=== PATIENT | male | born 1990 | race Caucasian/White ===

== ENCOUNTER 2025-03-10 17:51 | Emergency (ER) | payer OTHER, SELFPAY ==
[2025-03-10] VITALS (13 sets, daily range): BP systolic 104–135; BP diastolic 62–78; PULSE 55–85; RESP 16; TEMP 37.2; O2SAT 95–99; BMI 29.9
[2025-03-10 18:13] LABS: Add Manual Diff / Slide Review NO; Hematocrit 43.3 % (41-53); Hemoglobin 15.0 g/dL (13.5-17.5); Lymphocytes Absolute Auto 2700 /uL (1100-4500); Mean Corpuscular HGB Conc 34.6 % (30-36); Mean Corpuscular Hemoglobin 28.1 PG (26-34); Mean Corpuscular Volume 81.1 fL (80-100); Platelet Count 358 X10^3/uL (150-400)
[2025-03-10 18:22] LABS: Alanine Aminotransferase 32 IU/L (<50); Albumin 5.0 g/dL (3.5-5.0); Albumin Globulin Ratio 1.5 (1.0-2.8); Alkaline Phosphatase 62 U/L (38-126); Blood Urea Nitrogen 13 mg/dL (9-20); Calcium 9.6 mg/dL (8.4-10.2); Carbon Dioxide 23 mmol/L (22-32); Chloride 107 mmol/L (98-107); Estimated Glomerular Filt Rate > 60 mL/min (>60); Globulin 3.4 g/dL (1.7-4.1); Glucose 118 mg/dL (70-99); HEMOLYSIS < 15 (0-50); Lipase 150 U/L (23-300); Potassium 3.2 mmol/L (3.4-5.1); Sodium 145 mmol/L (137-145); Total Protein 8.4 g/dL (6.3-8.2)
--- NOTE | 2025-03-10 18:51 | DI.CT.S_ITS ---
PROCEDURE: CT ABDOMEN PELVIS WO CON INDICATIONS: r/o stone TECHNIQUE: Axial sections were acquired from the lung bases to the pubic symphysis. Coronal and sagittal reformats were performed. For radiation dose reduction, the following was used: automated exposure control, adjustment of mA and/or kV according to patient size. COMPARISON: None. FINDINGS: Image quality: Diagnostic. Lower Chest: Mild bibasilar dependent atelectasis posteriorly. Heart size is normal, no pericardial effusion. URINARY: Right Kidney: 4 mm nonobstructing stone is seen in midpole right kidney. No hydronephrosis. Right Ureter: No hydroureter. Left Kidney: Mild left-sided hydronephrosis is seen with mild left perinephric fat stranding. Simple appearing left renal cortical cyst is seen. Left Ureter: [id number] left-sided hydroureter and periureteral fat stranding with 3-4 mm stone seen in distal left ureter just proximal to left UVJ series 2, image 138. Bladder: Mild diffuse bladder wall thickening, no discrete bladder wall mass or calcified bladder stones. ABDOMEN: Liver: No contour-deforming solid mass. Hepatomegaly. Gallbladder: No radiopaque gallstones or wall thickening. Biliary ducts: No biliary dilation. Pancreas: No ductal dilation. Spleen: Size is within normal limits. Adrenal Glands: No adrenal nodules. Stomach and Bowel: Normal colonic caliber, without significant wall thickening. There is likely prior appendectomy. No abscess collection. Peritoneum: No abnormal intraperitoneal fluid. No free air. Ventral Wall: No hernia. Abdominal Nodes: No enlarged retroperitoneal or mesenteric lymph nodes. Vessels: Aorta and inferior vena cava are normal in size. PELVIS: Pelvic Organs: Unremarkable. Pelvic Nodes: Unremarkable. Miscellaneous: No inguinal hernias are seen. Bones: No aggressive appearing bony lesions. No acute vertebral body compression fracture. IMPRESSION: 1. 3-4 mm left distal ureteral stone with [id number] left-sided hydronephrosis and hydroureter with left perinephric and periureteral fat stranding. 2. Right-sided nonobstructing renal stones. No right-sided hydronephrosis or hydroureter. 3. Diffuse bladder wall thickening concerning for low-grade cystitis. No discrete bladder wall mass or calcified bladder stones. 4. Other chronic findings as described above. Dictated by: Maxime Crowley M.D. on 03/10/2025 at 19:44 Approved by: Maxime Crowley M.D. on 03/10/2025 at 19:47
[2025-03-10] MEDS: SODIUM CHLORIDE 0.9% 1,000 ML 1000 ML IV (19:44)
[2025-03-10 20:00] LABS: Appearance Urine UA CLOUDY; Bilirubin Urine UA NEGATIVE (NEGATIVE); Glucose Urine UA NEGATIVE (Negative); Ketones Urine UA 1+ (NEGATIVE); Leukocyte Esterase Urine UA NEGATIVE (NEGATIVE); Nitrite Urine UA NEGATIVE (Negative); Occult Blood Urine UA 3+ (Negative); Protein Urine UA 2+ (Negative); Specific Gravity Urine UA 1.025 (1.000-1.035); Urobilinogen Urine UA 0.2 E.U./dL (0.2); pH Urine UA 6.0 (4.5-8.0)
[2025-03-10 20:01] LABS: Color Urine UA Dark Yellow; Culture Indicated Urine Cult Not Indicated
--- NOTE | 2025-03-10 20:22 | ED_ITS ---
HPI - Abdominal Pain General Chief Complaint: Abdominal Pain Stated Complaint: Abd pain x2.5 hours Time Seen by Provider: 03/10/25 17:53 Source: patient and EMS Mode of arrival: EMS History of Present Illness HPI narrative: Patient is a 35-year-old man who presents with left flank pain radiating to left groin. Past medical history significant for remote episode of kidney stones, ADHD. He has some nausea. Denies any fevers, chills, vomiting. No hematuria, dysuria, frequency, urgency. Related Data Previous Rx's ?Medication ?Instructions ?Recorded dextroamphetamine-amphetamine ER 10 mg PO DAILY #30 ca ps 02/12/25 10 mg 24hr capsule,extend release (Adderall XR) dextroamphetamine-amphetamine ER 10 mg PO DAILY #30 ca ps 02/13/25 10 mg 24hr capsule,extend release (Adderall XR) dextroamphetamine-amphetamine ER 10 mg PO DAILY #30 ca ps 02/13/25 10 mg 24hr capsule,extend release (Adderall XR) naproxen 500 mg tablet 500 mg PO BID PRN pain #14 t abs 03/10/25 tamsulosin 0.4 mg capsule (Flomax) 0.4 mg PO DAILY #10 caps 03/10/25 Allergies Allergy/AdvReac Type Severity Reaction Status Date / Time No Known Drug Allergies Allergy Verified 03/10/25 18:05 Review of Systems Review of Systems ROS Unobtainable: All systems reviewed & are unremarkable except as noted in HPI and below Patient History Medical History (Updated 03/10/25 @ 20:08 by Cassie Hudson MD) ADHD Injury of right index finger Social History Smoking Status: Former smoker Smoking Status: Former smoker tobacco type: cigarettes Exam Narrative Exam Narrative: Vitals: Afebrile, bradycardic, all other vital signs normal Gen: Well developed, well nourished, no acute distressed Card: Regular, no murmurs, rubs, or gallops Pulm: No increased work of breathing, clear to auscultation bilateraly Abd: Soft nondistended, nontender to palpation in all quadrants. No costophrenic angle tenderness bilaterally. Ext: No edema in bilaterally lower extremity Neuro: A&O x 4, CN grossly intact, moving all 4 extremities spontaneous Psych: Appropriate Initial Vital Signs Initial Vital Signs: Vital Signs Pulse Rate 60 03/10/25 17:56 Respiratory Rate 16 03/10/25 17:56 Pulse Oximetry 97 03/10/25 17:56 Oxygen Delivery Method Room Air 03/10/25 17:56 Course Orders Ordered: Discontinued Medications Sodium Chloride (Normal Saline 0.9%) 1,000 mls @ 1,000 mls/hr IV BOLUS ONE Stop: 03/10/25 20:40 Last Infusion: 03/10/25 20:24 Dose: Infused Documented By: Admin: 03/10/25 19:44 Dose: 1,000 mls/hr Documented By: RACHEL Ketorolac Tromethamine (Ketorolac 30 Mg/Ml Vial) 15 mg IV PRN PRN PRN Reason: Pain, Moderate (4-6) Last Admin: 03/10/25 20:23 Dose: 15 mg Documented By: RACHEL Ondansetron HCl (Ondansetron 4 Mg/2 Ml Inj) 4 mg IV NOW PRN PRN Reason: Nausea And Vomiting Ondansetron HCl (Ondansetron 4 Mg Odt) 4 mg PO NOW PRN PRN Reason: Nausea And Vomiting Tamsulosin HCl (Tamsulosin 0.4 Mg Capsule) 0.4 mg PO NOW ONE Stop: 03/10/25 20:04 Last Admin: 03/10/25 20:23 Dose: 0.4 mg Documented By: RACHEL Vital Signs Vital signs: Vital Signs - 8 hr 03/10/25 17:56 03/10/25 17:57 03/10/25 17:57 Temperature Pulse Rate 60 59 L Respiratory Rate 16 Blood Pressure 132/77 Pulse Oximetry 97 97 Oxygen Delivery Method Room Air 03/10/25 18:00 03/10/25 18:00 03/10/25 18:05 Temperature 98.9 F Pulse Rate 64 57 L Respiratory Rate 16 Blood Pressure 125/78 132/77 Pulse Oximetry 96 97 Oxygen Delivery Method Room Air 03/10/25 18:30 03/10/25 18:30 03/10/25 19:00 Temperature Pulse Rate 55 L Respiratory Rate Blood Pressure 104/66 108/62 Pulse Oximetry 95 Oxygen Delivery Method 03/10/25 19:00 Temperature Pulse Rate 65 Respiratory Rate Blood Pressure Pulse Oximetry 97 Oxygen Delivery Method MDM - Abdominal Pain Lab Data 03/10/25 17:54 03/10/25 17:54 Labs: Lab Results 03/10/25 03/10/25 Range/Units 17:54 19:40 WBC 12.9 H (4.5-11.0) X10^3/uL RBC 5.34 (4.5-5.9) X10^6/uL Hgb 15.0 (13.5-17.5) g/dL Hct 43.3 (41-53) % MCV 81.1 (80-100) fL MCH 28.1 (26-34) PG MCHC 34.6 (30-36) % RDW 13.6 (11.6-14.8) % Plt Count 358 (150-400) X10^3/uL Neut % (Auto) 69.4 (50-75) % Lymph % (Auto) 20.6 L (25-40) % [place] % (Auto) 6.6 (3-14) % Eos % (Auto) 2.8 (2-4) % Baso % (Auto) 0.6 (0-2) % Neut # (Auto) 9000 H (1776-0870) /uL Lymph # (Auto) 2700 (9130-0132) /uL [place] # (Auto) 900 (0-900) /uL Eos # (Auto) 400 (0-450) /uL Baso # (Auto) 100 (0-100) /uL Sodium 145 (137-145) mmol/L Potassium 3.2 L (3.4-5.1) mmol/L Chloride 107 (98-107) mmol/L Carbon Dioxide 23 (22-32) mmol/L BUN 13 (9-20) mg/dL Creatinine 0.86 (0.66-1.25) mg/dL Estimated GFR > 60 (>60) mL/min BUN/Creatinine Ratio 15.1 (6-22) Glucose 118 H (70-99) mg/dL Calcium 9.6 (8.4-10.2) mg/dL Total Bilirubin 0.6 (0.2-1.3) mg/dL AST 32 (17-59) IU/L ALT 32 (<50) IU/L Alkaline Phosphatase 62 (38-126) U/L Total Protein 8.4 H (6.3-8.2) g/dL Albumin 5.0 (3.5-5.0) g/dL Globulin 3.4 (1.7-4.1) g/dL Albumin/Globulin Ratio 1.5 (1.0-2.8) Lipase 150 (23-300) U/L Urine Color Dark yellow Urine Appearance Cloudy Urine pH 6.0 (4.5-8.0) Ur Specific [place] 1.025 (1.000-1.035) Urine Protein 2+ H (Negative) Urine Glucose (UA) Negative (Negative) g/dL Urine Ketones 1+ H (NEGATIVE) Urine Occult Blood 3+ H (Negative) Urine Nitrate Negative (Negative) Urine Bilirubin Negative (NEGATIVE) Urine Urobilinogen 0.2 (0.2) E.U./dL Ur Leukocyte Esterase Negative (NEGATIVE) Urine RBC >100/hpf H (0-5/HPF) Urine WBC 0-1/hpf (0-5/HPF) Ur Squamous Epith Cells 0-1 /hpf (0-5/HPF) Urine Bacteria Occasional (0-1) (None) Urine Mucus 2+ H (Negative) Ur Culture Indicated? Cult not indicated Vol Urine Centrifuged 10ml (spun) Imaging Data CT scan - abdomen/pelvis: Radiologist's Impression: PROCEDURE: CT ABDOMEN PELVIS WO CON INDICATIONS: r/o stone TECHNIQUE: Axial sections were acquired from the lung bases to the pubic symphysis. Coronal and sagittal reformats were performed. For radiation dose reduction, the following was used: automated exposure control, adjustment of mA and/or kV according to patient size. COMPARISON: None. FINDINGS: Image quality: Diagnostic. Lower Chest: Mild bibasilar dependent atelectasis posteriorly. Heart size is normal, no pericardial effusion. URINARY: Right Kidney: 4 mm nonobstructing stone is seen in midpole right kidney. No hydronephrosis. Right Ureter: No hydroureter. Left Kidney: Mild left-sided hydronephrosis is seen with mild left perinephric fat stranding. Simple appearing left renal cortical cyst is seen. Left Ureter: [id number] left-sided hydroureter and periureteral fat stranding with 3-4 mm stone seen in distal left ureter just proximal to left UVJ series 2, image 138. Bladder: Mild diffuse bladder wall thickening, no discrete bladder wall mass or calcified bladder stones. ABDOMEN: Liver: No contour-deforming solid mass. Hepatomegaly. Gallbladder: No radiopaque gallstones or wall thickening. Biliary ducts: No biliary dilation. Pancreas: No ductal dilation. Spleen: Size is within normal limits. Adrenal Glands: No adrenal nodules. Stomach and Bowel: Normal colonic caliber, without significant wall thickening. There is likely prior appendectomy. No abscess collection. Peritoneum: No abnormal intraperitoneal fluid. No free air. Ventral Wall: No hernia. Abdominal Nodes: No enlarged retroperitoneal or mesenteric lymph nodes. Vessels: Aorta and inferior vena cava are normal in size. Sweet PELVIS: Pelvic Organs: Unremarkable. Pelvic Nodes: Unremarkable. Miscellaneous: No inguinal hernias are seen. Bones: No aggressive appearing bony lesions. No acute vertebral body compression fracture. IMPRESSION: 1. 3-4 mm left distal ureteral stone with [id number] left-sided hydronephrosis and hydroureter with left perinephric and periureteral fat stranding. 2. Right-sided nonobstructing renal stones. No right-sided hydronephrosis or hydroureter. 3. Diffuse bladder wall thickening concerning for low-grade cystitis. No discrete bladder wall mass or calcified bladder stones. 4. Other chronic findings as described above. Dictated by: Maxime Crowley M.D. on 03/10/2025 at 19:44 Approved by: Maxime Crowley M.D. on 03/10/2025 at 19:47 [facility] Narrative Medical decision making narrative: Patient is a 35-year-old man who presents with 1 day history of left lower back pain radiating to his left groin. -- EMR Review: Reviewed. Noncontributory. -- Differential diagnosis: Nephrolithiasis, urinary tract infection, pyelitis, perinephric abscess, diverticulitis, appendicitis, low back pain, hernia, muscle strain versus sprain, other. -- Labs: CBC with leukocytosis (WBC 12.9) no left shift, no anemia, normal platelets. CMP with mild hypokalemia (K 3.2), no evidence of TOM, normal GFR, all other values normal. Urinalysis with microscopic hematuria, no leuk esterase or nitrites. No indication of infection. -- Imaging: CT abdomen with a 4 mm stone at the ureterovesicular junction with [id number] left-sided hydronephrosis and hydroureter and perinephric/periureteral fat stranding. Patient was made aware of incidental finding of right-sided nonobstructive renal stones. -- EKG: None -- Consults: None ED Summary: The patient presented hemodynamically stable with a history and symptom profile consistent with nephrolithiasis. This was confirmed on imaging, which demonstrated a 4 mm stone at the UVJ along with hydronephrosis and hydroureter. Although the patient had leukocytosis, he remained afebrile, had no evidence of TOM, and reported no nausea, vomiting, or uncontrolled pain. Given the small stone size, stable clinical status, and absence of systemic symptoms, the plan is to pursue outpatient medical expulsion therapy. The patient received analgesia, Flomax, and a urine strainer. He was counseled on warning signs requiring prompt return to the ED, including worsening pain, fever, vomiting, inability to tolerate oral intake, or any signs of infection. Discharge Plan Departure Patient Disposition: Home Clinical Impression: Kidney stone on left side Instructions: DI for Kidney Stones Activity Restrictions/Additional Instructions: You were seen in the emergency department for lower back and left lower quadrant pain. In the ER: -- CT abdomen revealed a 4mm stone near your bladder. As discussed, you will likely experience another bout of severe pain. Take naproxen as needed for pain. -- Blood work did not reveal any systemic infection -- Urinalysis was not consistent with a urinary tract infection Plan: -- Take naproxen every 12 hours as needed for pain -- Take flomax every day to encourage stone passage -- Drink plenty of fluids until your urine is clear (your urinalysis was very concentrated) -- You were given urine strainer. Use to ensure stone passage. Return to the ER if you develop any new or worsening symptoms. Prescriptions: New naproxen 500 mg tablet 500 mg PO BID PRN (Reason: pain) Qty: 14 0RF tamsulosin [Flomax] 0.4 mg capsule 0.4 mg PO DAILY Qty: 10 0RF No Action dextroamphetamine-amphetamine [Adderall XR] 10 mg capsule,extended release 24hr 10 mg PO DAILY Qty: 30 0RF dextroamphetamine-amphetamine [Adderall XR] 10 mg capsule,extended release 24hr 10 mg PO DAILY Qty: 30 0RF Rx Instructions: Earliest Fill Date: 03/14/25 dextroamphetamine-amphetamine [Adderall XR] 10 mg capsule,extended release 24hr 10 mg PO DAILY Qty: 30 0RF Rx Instructions: Earliest Fill Date: 04/14/25 Referrals: Cornell Carver DO [Physician, Urology] Referral Note: kidney stone Manuela Nichols DO [Primary Care Provider, Family Practice] Stand Alone Forms: Patient Portal/API
[2025-03-10] MEDS: TAMSULOSIN 0.4 MG CAPSULE PO (20:23)
[2025-03-10] MEDS: KETOROLAC 30 MG/ML VIAL 15 MG IV (20:23)
== END 2025-03-10 20:36 | disposition home or self-care (01) ==
PROVIDERS: Emergency Provider Student in an Organized Health Care Education/Training Program; PCP Family Medicine
DX: N20.0 Calculus of kidney (principal); R11.0 Nausea
CPT/HCPCS: 36415; 74176; 80053; 81001; 83690; 85025; 96361; 96374; 99284; J1885; J7030